=== PATIENT | female | born 1950 | race Caucasian/White ===

== ENCOUNTER 2019-05-30 14:21 | Outpatient (CLI) | payer MEDICARE, OTHER ==
[2019-05-30 15:19] LABS: APPEARANCE,URINE CLEAR (CLEAR); COLOR,URINE YELLOW (YELLOW); OCCULT BLOOD,URINE NEGATIVE (NEGATIVE)
[2019-05-30 15:20] LABS: BASOPHILS % 0.5 % (0.0-1.5); NEUTROPHILS # 3.9 # k/uL (1.4-7.7); UROBILINOGEN URINE 0.2 Eu (0.2-1.0)
[2019-05-30 15:57] LABS: eGFR (Non-African) > 60
== END 2019-05-30 14:26 ==
LOC: EDBD 14:21 → LAB 14:21
PROVIDERS: ATTEND Physician Assistant
DX: D69.2 Other nonthrombocytopenic purpura (principal)
CPT/HCPCS: 36415; 80053; 80076; 81002; 84439; 84443; 85025; 85651; 86038; 86225; 86235